=== PATIENT | female | born 1950 | race Caucasian/White ===

== ENCOUNTER 2017-07-11 20:42 | Observation (INO) | payer OTHER, MEDICARE ==
[~2017-07-11] VITALS: Ht 152.4 cm; Wt 55.1 kg
[~2017-07-11 20:42] MED LIST: ACET-1138 PO; ASPEC81 PO; CHOL1TAB46 PO; CLB200 PO; CYAN10005 PO; DIPH1TAB98 PO; LEVO75TA5 PO; LISI-461 PO; METO25TA56 PO; MRLP17X PO; POTA99TA PO; RXC5 PO; SACC250C11 PO; SENNTAB23 PO
[2017-07-11 22:45] VITALS: BP 216/82; PULSE 78; TEMP 37.1; O2SAT 98; Ht 152.4 cm; Wt 55.1 kg
--- NOTE | 2017-07-11 23:22 | History and Physical ---
History & Physical Date & Time of Service: Jul 11, 2017 at 23:22 Chief Complaint: Svt, Chest Pain Primary Care Physician: Amy Desai PSophiaASophia History of Present Illness Source: patient, hospital records This is a 66 yo f that is a direct admission from [place]. The patient, a 56 yo f with a h/o hypothyroidism, a fib s/p ablation in 2016 and right hip arthroplasty presented to the ED earlier today as she suddenly had worsening chest pressure/ SOB and palpitations that concerned the patient and she presented to the ED. She was found to have tachycardia concerning for SVT and she received 6 mg of Adenosine which apparently revealed A fib. She then received Metoprolol 5 mg IV which helped with rate controlled and ultimately converted the patient. She has been asymptomatic since her admission in the ED. She has had intermittent difficulty with SOBOE over the past two weeks and she has been going to urgent cars/ PCP and " they treat me as if I have anxiety, they just gave me anxiety meds and now here I am." The patient underwent ablation for her A fib in 2015 and since then has not been on any anticoagulation or Metoprolol. She does still take Lisinopril and thyroid medications. Past Medical/Surgical History Hypothyroidism A fib s/p ablation 2016 right hip arthroplasty 2017 HTN Family History Stroke GRANDMOTHER Social History Smoking Status: Former Smoker (quit 1994) Smokeless Tobacco Use: No Alcohol Use: none Drug Use: none Occupational Status: retired Allergies Coded Allergies: No Known Allergies (Unverified , 03/28/16) Home Medications Scheduled Acetaminophen (Tylenol Extra Strength), 1,000 MG PO Q8H Aspirin (Aspirin EC Low Dose), 81 MG PO BID Celecoxib (Celebrex), 200 MG PO BID Cholecalciferol (Vitamin D3), 1 TAB PO QAM Cyanocobalamin (Vitamin B-12), 1,000 MCG PO QAM Diphenhydramine Hcl (Sleep) (Sleep Aid), 1 TAB PO HS Levothyroxine Sodium (Levothyroxine Sodium), 1 TAB PO QPM Lisinopril (Zestril), 10 MG PO BID Metoprolol Tartrate (Lopressor) (Lopressor), 0.5 TAB PO BID Potassium (Potassium), 1 TAB PO QAM Saccharomyces Boulardii (Probiotic), Unknown Dose PO QAM Sennosides-Docusate Sodium (Stool Softener), Unknown Dose PO QAM Scheduled PRN Oxycodone HCl (Oxycodone HCl), 5-10 MG PO Q4H PRN for Pain Miscellaneous Medications Polyethylene (Miralax), 1 TBS PO Review of Systems Constitutional: No fever, No chills Eyes: No worsening of vision ENT: No hearing loss Respiratory: + dyspnea on exertion, No cough, No sputum, No wheezing, No dyspnea at rest Cardiovascular: + palpitations, + problem reported (chest pressure), No chest pain Abdomen: No pain, No nausea, No vomiting, No diarrhea, No constipation Musculoskeletal: No joint pain, No muscle pain Genitourinary - Female: No dysuria, No hematuria Neurologic: No weakness, No numbness/tingling, No balance problems Psychiatric: No depression symptoms, No anxiety Endocrine: + fatigue (with exertion) Integumentary: No rash Physical Exam Vital Signs Date Time Temp Pulse Resp B/P (MAP) Pulse Ox O2 Delivery O2 Flow Rate FiO2 07/12/17 00:05 73 20 167/81 (109) 99 Room Air 07/11/17 22:45 37.1 78 22 216/82 98 Room Air General Appearance: no apparent distress Head: normocephalic, atraumatic Eyes: normal inspection ENT: normal ENT inspection, hearing grossly normal Neck: supple, thyroid normal, no JVD, no carotid bruits Respiratory/Chest: normal breath sounds, no respiratory distress, no accessory muscle use Cardiovascular: regular rate, rhythm, normal peripheral pulses, + systolic murmur (3/6 whistling murmur in aortic/ pulmonic regions, this is NEW) Abdomen/GI: normal bowel sounds, non tender, soft Back: no CVA tenderness, no muscle spasm Extremities/Musculoskelatal: no calf tenderness, no pedal edema, normal range of motion Neurologic/Psych: alert, normal mood/affect, oriented x 3 Skin: normal color, warm/dry, no rash Lymphatic: no adenopathy Diagnostics Laboratory Results Results Past 24 Hours Test 07/11/17 23:18 Range/Units Diagnostic Radiology no acute findings Impression Assessment and Plan This is a 66 yo f suffering from a fibb with rvr s/p ablation and worsening SOBOE x 2 weeks with a new murmur A fib with RVR s/p ablation; currently NSR - tele admission - Repeat EKG in am - Patient was on Metoprolol 12.5 mg bid, will restart in am - Optimize electrolytes with K of 4 and Mg of 2 - Repeat troponin in am - NPO for now - defer decision for CVS consult to am team - currently NSR, will defer starting heparin drip New onset systolic murmur with worsening SOBOE - Echo ordered Hypothyroidism - TSH low, will check free T4 and T3 - For now will continue her Levothyroxine 75 mcg until those results available HTN - Lopressor 5 mg IV for HR> 130 or SYS > 180 - Continue Lisinopril DVT prophylaxis - Heparin bid full code Resident Physician Supervision Note: Pt evaluated independently. I discussed the case with the resident and agree with the findings and plan as documented in the note. Any exceptions or clarifications are listed here: 66 y/o F Hx AF post ablation, hypothyroidism, hypotension. Transferred from [place] for rapid AF - asymptomatic and had reverted to a sinus rhythm so that the reason for transfer is not entirely clear. She does continue to c/o exertion and may have a new murmur. OE AAO x 3 S1,2 R (+) M CTAB NT, ND No CCE P: Continue Metoprolol Echo pending Long-term anticoagulation is recommended based on her CHADs score - can be DCd with if she is agreeable May need adjustment in Synthroid dose based on TSH - T3,4 pending Documented By: John John Resuscitation Status Full resus VTE Prophylaxis Will order VTE Prophylaxis: Yes Social Service Consult None Apply Note Total Time: Critical Care 30 - 74 minutes Additional Copies To Amy Desai, P.A.
[2017-07-11] MEDS ORDERED: OXYCODONE HCL IR 5 MG TAB (IMMEDIATE RELEASE) PO PRN (23:30)
[2017-07-11] MEDS ORDERED: ONDANSETRON INJ 2 MG/ML 2 ML VIAL IV PRN (23:30)
[2017-07-11] MEDS ORDERED: ALUMINUM/MAGNESIUM/SIMETH (MAALOX MAX) 30 ML UDC PO PRN (23:30)
[2017-07-11] MEDS ORDERED: MAGNESIUM HYDROXIDE SUSP 30 ML UDC PO PRN (23:30)
[2017-07-11] MEDS ORDERED: ACETAMINOPHEN 325 MG TAB PO PRN (23:30)
[2017-07-11] MEDS ORDERED: MoRPHine SULFATE 2 MG/ML CARP IV PRN (23:30)
[2017-07-11] MEDS ORDERED: NITROGLYCERIN 0.4 MG SL PER TAB CHARGE SL PRN (23:30)
[2017-07-11 23:37] LABS: BASO % 0.2 %; BASO ABS # 0.02 K/uL (0-0.2); EOS ABS # 0.08 K/uL (0-0.5); HEMATOCRIT 38.2 % (37-47); HEMOGLOBIN 12.9 g/dL (12.0-16.0); IG# 0.02 K/uL (0.00-0.02); LYMPH % 27.1 %; LYMPH ABS # 2.25 K/uL (1.2-3.4); MEAN CELL VOLUME 86.2 fL (80-100); MEAN CORPUSCULAR HEMOGLOBIN 29.1 pg (25-34); MEAN CORPUSCULAR HGB CONC 33.8 g/dl (32-36); MEAN PLATELET VOLUME 10.5 fL (7.4-10.4); MONO % 6.3 %; MONO ABS # 0.52 K/uL (0.11-0.59); NEUT % 65.2 %; PLATELET COUNT 295 K/uL (130-400); RED CELL DISTRIBUTION WIDTH CV 13.1 % (11.5-14.5); RED CELL DISTRIBUTION WIDTH SD 41.8 fL (36.4-46.3); WHITE BLOOD COUNT 8.29 K/uL (4.8-10.8)
[2017-07-12 00:03] LABS: ALBUMIN 3.7 gm/dl (3.4-5.0); ALT/SGPT 19 U/L (12-78); BLOOD UREA NITROGEN 10 mg/dl (7-18); CALCIUM 9.1 mg/dl (8.5-10.1); CARBON DIOXIDE 26 mmol/L (21-32); CREATININE 0.73 mg/dl (0.60-1.20); GLUCOSE 118 mg/dl (70-99); POTASSIUM 3.6 mmol/L (3.5-5.1); SODIUM 138 mmol/L (136-145)
[2017-07-12 00:05] VITALS: BP 167/81; PULSE 73; O2SAT 99
[2017-07-12 00:14] LABS: ALKALINE PHOSPHATASE 82 U/L (45-117); AST/SGOT 10 U/L (15-37)
[2017-07-12] MEDS ORDERED: HydrALAZINE HCL 20 MG/ML VIAL IV. PRN (00:30)
[2017-07-12] MEDS ORDERED: METOPROLOL TARTRATE 1 MG/ML VIAL IV PRN (01:00)
[2017-07-12] MEDS ORDERED: COUGH DROP (SUGAR FREE) LOZ 24 LOZ/1 BOX LOZ ONE (02:34)
[2017-07-12] MEDS ORDERED: NURSING DECISION MEDICATION ORDER SCH (02:45)
[2017-07-12] MEDS ORDERED: COUGH DROP (SUGAR FREE) LOZ 24 LOZ/1 BOX LOZ PRN (03:30)
[2017-07-12 04:00] VITALS: BP 103/65; PULSE 71; TEMP 37.3; O2SAT 97
[2017-07-12] MEDS ORDERED: IV FLUIDS COMPLETED PRN (04:30)
--- NOTE | 2017-07-12 05:21 | DIAGNOSTIC IMAGING REPORT ---
CHEST ONE VIEW PORTABLE CLINICAL HISTORY: 66 years-old Female presenting with chest pain. TECHNIQUE: Portable upright AP view of the chest was obtained. COMPARISON: 03/28/2016. FINDINGS: Atherosclerosis of the aortic arch. Cardiac silhouette top normal in size. Lungs and pleural spaces clear. Osseous structures normal. Upper abdomen normal. IMPRESSION: 1. No acute cardiopulmonary disease. Electronically signed by: Meet Davidson M.D. 07/12/2017 5:20 AM Dictated Date/Time: 07/12/2017 5:19 AM
[2017-07-12] MEDS ORDERED: LEVOTHYROXINE 75 MCG TAB PO SCH (06:00)
[2017-07-12 08:01] VITALS: BP 160/89; PULSE 79; TEMP 36.7; O2SAT 96
[2017-07-12 08:05] LABS: PTT PATIENT 26.1 SECONDS (21.0-31.0)
[2017-07-12 08:19] LABS: BLOOD UREA NITROGEN 12 mg/dl (7-18); CALCIUM 9.2 mg/dl (8.5-10.1); CARBON DIOXIDE 28 mmol/L (21-32); CREATININE 0.78 mg/dl (0.60-1.20); GLUCOSE 95 mg/dl (70-99); POTASSIUM 3.3 mmol/L (3.5-5.1); SODIUM 139 mmol/L (136-145)
[2017-07-12] MEDS ORDERED: POLYETHYLENE (MIRALAX) 17 GM PACK PO SCH (09:00)
[2017-07-12] MEDS ORDERED: CYANOCOBALAMIN 500 MCG TAB (VIT B-12) PO SCH (09:00)
[2017-07-12] MEDS ORDERED: LISINOPRIL 10 MG TAB PO SCH (09:00)
[2017-07-12] MEDS ORDERED: HEPARIN SOD 5000 UNIT/0.5 ML CARP SQ SCH (09:00)
[2017-07-12] MEDS ORDERED: METOPROLOL TARTRATE 25 MG TAB PO SCH ×3 (09:00→16:15)
[2017-07-12] MEDS ORDERED: ASPIRIN 81 MG ECTAB PO SCH (09:00)
[2017-07-12] MEDS ORDERED: CHOLECALCIFEROL 1000 INTER.UNIT TAB PO SCH (10:00)
[2017-07-12 12:56] VITALS: BP 160/80; PULSE 82; TEMP 37.1; O2SAT 96
[2017-07-12 15:55] VITALS: BP 165/87; PULSE 83; TEMP 37; O2SAT 97
--- NOTE | 2017-07-12 16:01 | ECHOCARDIOGRAM REPORT ---
*NOTICE TO RECEIVING REPUBLICAN AGENCY This information is strictly Confidential and protected under [place] law. [place] law prohibits you from making any further disclosure of this information unless further disclosure is expressly permitted by the written consent of the person to whom it pertains or is authorized by law. A general authorization for the release of medical or other information is not sufficient for this purpose. Hospital accepts no responsibility if the information is made available to any other person, INCLUDING THE PATIENT. Interpretation Summary * Name: ADAM SMILEY Study Date: 07/12/2017 09:45 AM BP: 103/65 mmHg * Patient Location: C.2T\S\S238\S\2 HR: 71 * : 1950 (M/d/yyyy) Gender: Female Height: 60 in * Age: 66 yrs Ethnicity: CA Weight: 125 lb * Ordering Physician: Jennifer Joe * Referring Physician: No Doctor, Assigned * Performed By: Miranda Mercedes RDCS * * Reason For Study: Murmurs * BSA: 1.5 m2 * -- Conclusions -- * The left ventricle is grossly normal size. * There is normal left ventricular wall thickness. * The left ventricular wall motion is normal. * Ejection Fraction = 60-65%. * Left ventricular systolic function is normal. * The right ventricle is normal in size and function. * The left atrium is mildly dilated. * Mild aortic regurgitation. Procedure Details * A complete two-dimensional transthoracic echocardiogram was performed (2D, M-mode, Doppler and color flow Doppler). Left Ventricle * The left ventricle is grossly normal size. * There is normal left ventricular wall thickness. * Ejection Fraction = 60-65%. * Left ventricular systolic function is normal. * The left ventricular wall motion is normal. Right Ventricle * The right ventricle is normal in size and function. Atria * The left atrium is mildly dilated. * Right atrial size is normal. Mitral Valve * The mitral valve is grossly normal. * There is trace mitral regurgitation. Tricuspid Valve * The tricuspid valve is not well visualized, but is grossly normal. * There is trace tricuspid regurgitation. Aortic Valve * The aortic valve is trileaflet. * Mild aortic regurgitation. Pulmonic Valve * The pulmonic valve is not well seen, but is grossly normal. Great Vessels * The aortic root is normal size. Pericardium/Pleural * There is no pericardial effusion. Great Vessels * Normal inferior vena cava size and collapsability with sniff indicates a normal right atrial pressure of 3 mmHg Left Ventricular Diastolic Function * Grade I diastolic dysfunction, (abnormal relaxation pattern). MMode 2D Measurements and Calculations IVSd 0.80 cm LVIDd 3.6 cm LVIDs 2.4 cm LVPWd 1.1 cm IVS/LVPW 0.74 FS 33.8 % EDV(Teich) 55.3 ml ESV(Teich) 20.2 ml EF(Teich) 63.5 % EDV(cubed) 47.5 ml ESV(cubed) 13.8 ml EF(cubed) 70.9 % LV mass(C)d 99.3 grams LV mass(C)dI 65.0 grams/m\S\2 SV(Teich) 35.1 ml SI(Teich) 23.0 ml/m\S\2 SV(cubed) 33.7 ml SI(cubed) 22.1 ml/m\S\2 Ao root diam 2.6 cm Ao root area 5.3 cm\S\2 ACS 1.7 cm LA dimension 2.8 cm asc Aorta Diam 2.1 cm LA/Ao 1.1 LVOT diam 1.6 cm LVOT area 2.1 cm\S\2 LVAd ap4 13.9 cm\S\2 LVLd ap4 6.0 cm EDV(MOD-sp4) 27.2 ml EDV(sp4-el) 27.3 ml LVAs ap4 7.5 cm\S\2 LVLs ap4 5.2 cm ESV(MOD-sp4) 9.6 ml ESV(sp4-el) 9.2 ml EF(MOD-sp4) 64.7 % EF(sp4-el) 66.4 % LVAd ap2 16.4 cm\S\2 LVLd ap2 6.3 cm EDV(MOD-sp2) 37.0 ml EDV(sp2-el) 36.1 ml LVAs ap2 8.7 cm\S\2 LVLs ap2 5.4 cm ESV(MOD-sp2) 13.1 ml ESV(sp2-el) 12.1 ml EF(MOD-sp2) 64.7 % EF(sp2-el) 66.6 % LVLd %diff 5.4 % EDV(MOD-bp) 32.6 ml LVLs %diff 2.9 % ESV(MOD-bp) 11.4 ml EF(MOD-bp) 65.1 % SV(MOD-sp4) 17.6 ml SI(MOD-sp4) 11.5 ml/m\S\2 SV(MOD-sp2) 23.9 ml SI(MOD-sp2) 15.6 ml/m\S\2 SV(MOD-bp) 21.2 ml SI(MOD-bp) 13.9 ml/m\S\2 SV(sp4-el) 18.1 ml SI(sp4-el) 11.9 ml/m\S\2 SV(sp2-el) 24.1 ml SI(sp2-el) 15.7 ml/m\S\2 Doppler Measurements and Calculations MV E max lisa 57.2 cm/sec MV A max lisa 79.1 cm/sec MV E/A 0.72 MV dec time 0.21 sec Ao V2 max 119.4 cm/sec Ao max PG 5.7 mmHg Ao max PG (full) 1.5 mmHg SINA(V,A) 1.8 cm\S\2 SINA(V,D) 1.8 cm\S\2 LV V1 max PG 4.2 mmHg LV V1 max 102.3 cm/sec PA V2 max 78.7 cm/sec PA max PG 2.5 mmHg PA acc slope 372.6 cm/sec\S\2 PA acc time 0.15 sec PI max lisa 134.4 cm/sec PI max PG 7.2 mmHg PI dec slope 163.4 cm/sec\S\2 PI P1/2t 240.8 msec TR max lisa 207.7 cm/sec PA pr(Accel) 9.3 mmHg
[2017-07-12] MEDS ORDERED: ELQ25 PO ×2 (16:14→16:36)
--- NOTE | 2017-07-12 16:18 | Discharge Instructions ---
Discharge Instructions Date of Service Jul 12, 2017. Admission Reason for Admission: Svt, Chest Pain Discharge Discharge Diagnosis / Problem: SVT, A-fib Discharge Goals Goal(s): Improve function, Increase independence, Improve disease control, Diagnostic testing, Therapeutic intervention Activity Recommendations Activity Limitations: resume your previous activity . Current Hospital Diet Patient's current hospital diet: Regular Diet Discharge Diet Recommended Diet: AHA Diet (Heart Healthy) Procedures Procedures Performed: None Pending Studies Studies pending at discharge: no Medical Emergencies . Who to Call and When: Medical Emergencies: If at any time you feel your situation is an emergency, please call 911 immediately. . Non-Emergent Contact Non-Emergency issues call your: Primary Care Provider Call Non-Emergent contact if: you have any medication questions . . "Provider Documentation" section prepared by Alonzo Borges . Steam Shovelman Recommendations Steam Shovelman Recommendations: Anticoagulation
[2017-07-12 16:27] VITALS: BP 165/87; PULSE 83; TEMP 37; O2SAT 97
--- NOTE | 2017-07-12 16:53 | CARDIOLOGY CONSULTATION ---
DATE OF CONSULTATION: 07/12/2017 REQUESTING: Jennifer Joe. [employer] ATTENDANT: Benson Altamirano D.O., [facility]. REASON FOR CONSULTATION: History of atrial flutter status post flutter ablation, according to the patient with recurrent atrial arrhythmias. Dear Dr. Joe: Thank you for requesting cardiology consultation on Danielle with regards to her recurrent atrial arrhythmias. In discussing her ablation with the patient and in reviewing potential medicines she was on in the past, it seems she was never on an antiarrhythmic and then when I questioned her further about left-sided procedure lasting 6 hours and the success of an aFib ablation as to what she was told, she was told that the success of her procedure was in the 98-99% range and overall it sounds like she actually had a right-sided atrial flutter ablation rather than an aFib ablation. She notes over the last month or so, she has had increasing palpitation, she has increasing shortness of breath when climbing the stairs with her palpitations, she notes the episodes were becoming more frequent and bothersome that she went to the Emergency Room there, they felt she had atrial fibrillation. She received adenosine, which they describe revealed atrial fibrillation. In reviewing her EKG strips, this looks like a 2:1 atrial tachycardia or a 2:1 atrial flutter. She also has frequent PACs and atrial couplets and triplets which likely trigger her atrial arrhythmias. Even here in the monitor, there appears to be 2 discrete P waves for every QRS at a rate of approximately 170 beats per minute consistent with a narrow QRS complex. She is feeling better. She is on low dose beta tatiana. She notes in the past, she was on beta blockers, they stopped them as they felt after wearing a monitor, she did not need them anymore and stopped her apixaban. She had no difficulties with apixaban in the past. Outside of the episodes of palpitation, she has no chest pain or chest pressure, doing activity. She denies any lightheadedness, dizziness, presyncope or syncope, lower extremity edema, symptoms of claudication. When she does have the palpitations, she does feel weak and tired, but denies any dizziness. The rest of review of system otherwise negative. PAST MEDICAL HISTORY: 1. What sounds like in a flutter ablation in 2016. 2. Recurrent atrial flutter/atrial tachycardia, at times appears to be a 2:1 tachycardia at 170 beats per minute. 3. Right hip arthroplasty in 2006. 4. Hypertension. 5. Hypothyroidism. 6. CHADS2-VASc score of 3, that being hypertension, her age and her gender. FAMILY HISTORY: Positive for stroke. SOCIAL HISTORY: She is a former smoker, quitting in 1994. She denies any alcohol or tobacco. She is and retired. ALLERGIES: No known drug allergies. OUTPATIENT MEDICATIONS: Reviewed in detail. PHYSICAL EXAMINATION: GENERAL: She is awake, alert, oriented x3. She is in no acute distress, a well-appearing female, looks younger than her stated age. VITAL SIGNS: Her heart rate is 83, blood pressure 165/87, respirations 16, sat 97%. NECK: 2+ carotid upstrokes. No evidence of carotid bruits or venous pressure appeared normal. HEENT: Sclerae is anicteric. Hearing is normal. LUNGS: Clear to auscultation bilaterally. No rales, rhonchi or wheezing. HEART: Regular rate and rhythm with a soft systolic ejection murmur. No rubs or gallops. ABDOMEN: Soft, nontender, nondistended. Positive bowel sounds. EXTREMITIES: No clubbing, cyanosis or edema. PSYCHIATRIC: Affect appeared appropriate. NEUROLOGIC: Grossly nonfocal. LABORATORY AND IMAGING STUDIES: From [facility]: Troponins were negative x3. Her EKGs were reviewed in detail. Echocardiogram here, mild left atrial enlargement, normal biventricular size and function, type 1 diastolic dysfunction. Her thyroid studies here were reviewed. Her free T4 is normal. Her TSH is slightly low. Her coags were normal. Hemoglobin of 12.3, platelet count of 268. AST and ALT were normal. Magnesium 2.2, BUN of 11, creatinine 0.71, sodium 144, potassium 3.4, chloride 112, CO2 of 25. IMPRESSION: 1. Recurrent atrial arrhythmias after what sounds like an atrial flutter ablation. 2. Normal echocardiogram with mild left atrial enlargement. 3. Recurrent narrow complex tachycardia which what appears to be a 2:1 atrial tachycardia or a 2:1 atypical flutter with frequent premature atrial contractions. As I reviewed with Danielle and her , it does not sound like she was ever on antiarrhythmic therapy before her ablation, which would make it very unusual that she would have had an atrial fibrillation ablation. In addition, she describes a very high success rate, which we would usually see with a flutter ablation, but almost would not expect with an atrial fibrillation ablation. In light of that, I think she had a flutter ablation, she may have a recurrence of her flutter or an atypical atrial tachycardia near the original scar line. At this point, I would increase her beta blockers as she was not on them as an outpatient to 25 mg b.i.d. with the idea that we can increase them as her heart rate and blood pressure allow. Hopefully, beta blockers will suppress her PACs and her atrial arrhythmias. I discussed her if she has recurrent palpitations at home, she can always take an extra 25 mg of metoprolol. I would add apixaban given her elevated CHADS2-VASc score of 3. She was on this previously, her renal function is normal. Long-term, she ultimately may need antiarrhythmic therapy or even an ablation. I would recommend an outpatient stress echo to make sure she does not have obstructive coronary disease and if she does not, then at that point flecainide becomes a reasonable option to try to maintain sinus rhythm with an AV dipti tatiana. As I discussed them if necessary, we can have her see the EP service. From my standpoint, she can be discharged home. Her free T4 is normal, although her TSH is on the slightly low side, I do not think she is hyperthyroid that is leading to her symptoms. In addition, her shortness of breath is just with palpitations and not when she is in sinus rhythm climbing stairs. Thank you for allowing us to participate in her care. All her questions were answered in detail.
[2017-07-12] MEDS ORDERED: APIXABAN 2.5 MG TAB PO SCH (21:00)
[2017-07-12] MEDS ORDERED: POTASSIUM CHLORIDE 20 MEQ TABCR PO SCH (21:00)
--- NOTE | 2017-07-12 22:39 | Discharge Summary ---
Discharge Summary Date of Service Jul 12, 2017. Discharge Summary Admission Date: Jul 11, 2017 at 22:46 Discharge Date: Jul 12, 2017 Discharge Disposition: Home Principal Diagnosis: Recurrent atrial arrhythmias after what sounds like an atrial flutter Procedures: None Consultations: Cardiology Medication Reconciliation New Medications: Apixaban (Eliquis) 2.5 Mg Tab 2.5 MG PO BID for 30 Days, #60 TAB Continued Medications: Acetaminophen (Tylenol Extra Strength) 500 Mg Tab 1000 MG PO Q8H for 30 Days, #180 TAB Aspirin (Aspirin EC Low Dose) 81 Mg Ectab 81 MG PO BID for 30 Days Celecoxib (Celebrex) 200 Mg Cap 200 MG PO BID, #60 CAP Cholecalciferol (Vitamin D3) 5,000 Unit Tab 1 TAB PO QAM TAKES AT 10 AM Cyanocobalamin (Vitamin B-12) 1,000 Mcg Tab 1000 MCG PO QAM, TAB TAKES AROUND 10 AM Diphenhydramine Hcl (Sleep) (Sleep Aid) 25 Mg Tab 1 TAB PO HS Levothyroxine Sodium (Levothyroxine Sodium) 75 Mcg Tab 1 TAB PO QPM, TAB Lisinopril (Zestril) 10 Mg Tab 10 MG PO BID, TAB Metoprolol Tartrate (Lopressor) (Lopressor) 25 Mg Tab 0.5 TAB PO BID, TAB Oxycodone HCl (Oxycodone HCl) 5 Mg Tab 5-10 MG PO Q4H PRN for Pain, #60 TAB Polyethylene (Miralax) 17 Gm Pow 1 TBS PO TAKES IN COFFEE EVERY MORNING Potassium (Potassium) 99 Mg Tab 1 TAB PO QAM TAKES AT 10 AM Saccharomyces Boulardii (Probiotic) Unknown Strength Cap Unknown Dose PO QAM TAKES AROUND 10 AM Sennosides-Docusate Sodium (Stool Softener) Unknown Strength Tab Unknown Dose PO QAM 10 AM Referrals At Discharge Follow up Referrals: Family Practice Referral - Within 1-2 Weeks with Amy Desai PSophiaA. Discharge Exam Review of Systems: Constitutional: No fever, No chills, No fatigue Respiratory: No cough, No sputum, No wheezing, No shortness of breath, No dyspnea on exertion, No dyspnea at rest Abdomen: No pain, No nausea Neurologic: No weakness Psychiatric: + anxiety Endocrine: No fatigue Physical Exam: General Appearance: WD/WN, no apparent distress Eyes: normal inspection, EOMI Neck: supple, thyroid normal, no JVD Cardiovascular: regular rate, rhythm, no edema, no JVD Abdomen / GI: normal bowel sounds, soft, no pulsatile mass Extremities: normal inspection, no calf tenderness, normal capillary refill , no pedal edema Neurologic/Psychiatric: 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 I tried to order 5 mg po bid as per cardiology but [facility] called me back and said her insurance did not covered that dose, advise patient to talk to her pcp and discuss further. Metoprolol 25 mg po bid. New onset systolic murmur with worsening SOBOE - Echo normal Subclinical Hyperthyroidism - TSH low, will check free T4 and T3 - Advise Levothyroxine 75 mcg for Friday and Friday, the rest of the week levothyroxine 50 mcg daily. Patient was discharge home in stable condition in self care. Total Time Spent: Greater than 30 minutes This includes examination of the patient, discharge planning, medication reconciliation, and communication with other providers. Discharge Instructions Please refer to the electronic Patient Visit Report (Discharge Instructions) for additional information. Follow-Up Cardiology Additional Copies To Amy Desai P.A.
== END 2017-07-12 17:11 | disposition home or self-care (01) ==
LOC: C.2T 22:46
PROVIDERS: ADMIT Internal Medicine; ATTEND Internal Medicine
DX: I48.91 Unspecified atrial fibrillation (principal); E03.9 Hypothyroidism, unspecified; I10 Essential (primary) hypertension; Z87.891 Personal history of nicotine dependence; Z79.01 Long term (current) use of anticoagulants; Z79.82 Long term (current) use of aspirin; Z79.899 Other long term (current) drug therapy; Z96.641 Presence of right artificial hip joint; Z82.3 Family history of stroke